=== PATIENT | male | born 1960 ===

== ENCOUNTER 2017-01-04 14:58 | Emergency (ER) | payer OTHER ==
[2017-01-04] MEDS ORDERED: Lidocaine 1% MPF* 2 ML VIAL INJ ONE (15:56)
[2017-01-04] MEDS ORDERED: Tetan/Diph/Pertus SYR(Tdap)* 0.5 ML SYR(BOOSTRIX) use SYR IM ONE (16:34)
--- NOTE | 2017-01-04 16:38 | UC ---
Laceration HPI - HPI Summary HPI Summary: Patient presents with a laceration to the left index finger. He states he lacerated the area on a muffler while working about 2 hours ago. Minimal amount of bleeding. The laceration is an avulsion to the ulnar side of the index finger of the left hand involving the MCP joint. Denies other injuries. Denies tingling, numbness, color or temperature changes. Pulses + 2 bilaterally. The wound is contaminated. - History Of Current Complaint Chief Complaint: UCLaceration Stated Complaint: FINGER LAC Time Seen by Provider: 01/04/17 15:57 Hx Obtained From: Patient Laceration Location: Finger Mechanism Of Injury: Sharp Trauma Severity: Moderate Pain Intensity: 1 Pain Scale Used: 0-10 Numeric Aggravating Factors: Nothing Related History: Dominant Hand Right - Allergies/Home Medications Allergies/Adverse Reactions: Allergies Allergy/AdvReac Type Severity Reaction Status Date / Time Penicillins [PCN] Allergy Unknown Verified 01/04/17 15:07 Reaction Details Home Medications: Home Medications NK [No Home Medications Reported] 01/04/17 [History Confirmed 01/04/17] PMH/Surg Hx/FS Hx/Imm Hx Previously Healthy: Yes - Surgical History Surgical History: None - Family History Known Family History: Positive: Unknown - Social History Occupation: Employed Full-time Lives: With Family Alcohol Use: Occasionally Substance Use Type: None Smoking Status (MU): Light Every Day Tobacco Smoker Type: Cigarettes Review of Systems Constitutional: Negative Skin: Other - 3cm laceration which has avulsed the skin ENT: Negative Cardiovascular: Negative Motor: Negative Neurovascular: Negative Musculoskeletal: Negative Psychological: Negative All Other Systems Reviewed And Are Negative: Yes Physical Exam Triage Information Reviewed: Yes Appearance: Well-Appearing, No Pain Distress, Well-Nourished Vital Signs: Initial Vital Signs Temp 98.6 F 01/04/17 15:03 Pulse 77 01/04/17 15:03 Resp 18 01/04/17 15:03 BP 155/76 01/04/17 15:03 Pulse Ox 100 01/04/17 15:03 Eye Exam: Normal Eyes: Positive: Conjunctiva Clear Neck exam: Normal Neck: Positive: Supple Respiratory Exam: Normal Respiratory: Positive: Chest non-tender, Lungs clear Cardiovascular Exam: Normal Cardiovascular: Positive: RRR Musculoskeletal: Positive: Strength Intact, ROM Intact Neurological: Positive: Alert, Muscle Tone Normal Psychological Exam: Normal Psychological: Positive: Normal Response To Family Skin: Positive: Other - 3cm laceration which has avulsed the skin Laceration Repair - Laceration Repair 1 Description: Irregular Laceration Size After Repair: Length (cm) - 4cm, Width (mm) - 1cm, Depth (mm) - .5cm Modified For Repair: No Type Injection: Local Anesthesia Used: 1.0% Lido Cleansing Completed Via Routine Prep: Yes Irrigation With Pressure Irrigation Device: Yes Closure Material: Sutures - 7 sutures placed Closure Method: Single Layer Suture Of: Skin Suture Type: Prolene Laceration Course/Dx - Course/Dx Course Of Treatment: 3cm laceration which has avulsed the skin to the ulnar side of the left index finger. The skin looks to be necrosing, and minimal debridment was involved. Time out obtained for patient safety. Tetanus updated. Lidocaine without epi 2ml used as anesthetic. 7 sutures placed. Patients high blood pressure was noted. Advised to follow up next week for BP check up. Medicatoins were reviewed with patient. Patient agrees to follow up with PCP and is OK with discharge plan. - Differential Dx - Laceration/Wound Differental Diagnoses: Abrasion, Avulsion, Laceration Provider Diagnoses: Finger avulsion Discharge - Discharge Plan Condition: Stable Disposition: HOME Patient Education Materials: Care For Your Stitches (ED), Laceration (ED) Referrals: Edwige Mcnulty MD [Primary Care Provider] - Additional Instructions: Suture removal in 7 days Continue keeping it wrapped, dry and clean Use the yellow gauze for 3 days with it wrapped Keep it open to air when not working after 3 days. If you develop signs of infection such as redness, streaking, drainage from the area or you develop a fever, come back to immediately.
== END 2017-01-04 16:56 | disposition home or self-care (01) ==
LOC: UCEAST 14:58
DX: S61.211A Laceration without foreign body of left index finger without damage to nail, initial encounter (principal); W26.8XXA Contact with other sharp object(s), not elsewhere classified, initial encounter; Y93.89 Activity, other specified; F17.210 Nicotine dependence, cigarettes, uncomplicated; Z23 Encounter for immunization
CPT/HCPCS: 12032; 13121; 90471; 90715; 99201; G0463